=== PATIENT | female | born 1970 | race Native Hawaiian/Other Pacific Islander ===

== ENCOUNTER 2018-02-27 20:22 | Emergency (ER) | payer SELFPAY ==
[2018-02-27 20:22] VITALS: BMI 30.2
[2018-02-27 20:32] VITALS: RESP 18; TEMP 97.9
[2018-02-27 20:34] VITALS: PULSE 98; O2SAT 96
--- NOTE | 2018-02-27 20:55 | C.PDOC ---
History Of Present Illness 47 year old female with PMHx of psoriasis presents to the ED c/o generalized joint pain specially in her hands and feet for the past few days. Patient states she also has diffuse erythematous lesions over her body. Patient denies fever, chills, CP, SOB, nausea, vomit, weakness, numbness, injury, fall, trauma. Chief Complaint (Nursing): Abnormal Skin Integrity History Per: Patient History/Exam Limitations: no limitations Onset/Duration Of Symptoms: Days Current Symptoms Are (Timing): Still Present Quality Of Symptoms: Painful Recent travel outside of the [place]: No Additional History Per: Patient Past Medical History Reviewed: Historical Data, Nursing Documentation, Vital Signs Vital Signs: Last Vital Signs Temp 97.9 F 02/27/18 20:34 Pulse 98 H 02/27/18 20:34 Resp 18 02/27/18 20:34 BP 170/110 H 02/27/18 21:31 Pulse Ox 96 02/27/18 22:41 - Medical History PMH: Anemia, Asthma, HTN Other PMH: psoriasis Surgical History: Cholecystectomy - [facility] Procedures INTRAOPER CHOLANGIOGRAM (04/15/13) LAPAROSCOPIC CHOLECYSTECTOMY (04/15/13) Family History: States: Unknown Family Hx - Social History Hx Tobacco Use: Yes Hx Alcohol Use: No Hx Substance Use: No - Immunization History Hx Tetanus Toxoid Vaccination: No Hx Influenza Vaccination: No Hx Pneumococcal Vaccination: No Review Of Systems Constitutional: Negative for: Fever, Chills Cardiovascular: Negative for: Chest Pain Respiratory: Negative for: Shortness of Breath Gastrointestinal: Negative for: Nausea, Vomiting Musculoskeletal: Positive for: Hand Pain, Foot Pain Skin: Positive for: Lesions Neurological: Negative for: Weakness, Numbness Physical Exam - Physical Exam Appears: Non-toxic, No Acute Distress Skin: Normal Color, Warm, Dry, Other (erythematous diffuse lesions over body) Head: Atraumatic, Normacephalic Eye(s): bilateral: Normal Inspection Oral Mucosa: Moist Neck: Normal ROM, Supple Chest: Symmetrical Cardiovascular: Rhythm Regular Respiratory: Normal Breath Sounds, No Rales, No Rhonchi, No Wheezing Gastrointestinal/Abdominal: Soft, No Tenderness, No Guarding, No Rebound Extremity: Normal ROM, No Tenderness, Capillary Refill (< 2 seconds), No Swelling Pulses: Left Radial: Normal, Right Radial: Normal Neurological/Psych: Oriented x3, Normal Speech, Normal Motor, Normal Sensation Gait: Steady ED Course And Treatment - Laboratory Results Result Diagrams: 02/27/18 21:25 02/27/18 21:25 O2 Sat by Pulse Oximetry: 96 (ON RA) Pulse Ox Interpretation: Normal Medical Decision Making Medical Decision Making: Plan: * Uric acid Disposition - Disposition Referrals: Delmar Solomon MD [Primary Care Provider] - [facility] [Outside] Disposition: HOME/ ROUTINE Condition: STABLE Prescriptions: Naproxen [Naprosyn Tab] 375 mg PO TIDPC #20 tab Instructions: High Blood Pressure in Adults, Psoriatic Arthritis, Psoriasis (DC ) Forms: [employer] (Filipino) - POA Present On Arrival: None - Clinical Impression Clinical Impression: Hypertension, Psoriasis, Psoriatic arthritis - Scribe Statement The provider has reviewed the documentation as recorded by the Scribluh Pérez All medical record entries made by the Scribe were at my direction and personally dictated by me. I have reviewed the chart and agree that the record accurately reflects my personal performance of the history, physical exam, medical decision making, and the department course for this patient. I have also personally directed, reviewed, and agree with the discharge instructions and disposition.
[2018-02-27] MEDS ORDERED: Sodium Chloride 0.9% 1,000 ML IV ONE (21:05)
[2018-02-27 21:29] LABS: BASO # 0.1 K/uL (0.0-0.2); BASO % 1.1 % (0.0-2.0); EOS # 0.2 K/uL (0.0-0.7); EOS % 2.5 % (0.0-4.0); HEMOGLOBIN 14.4 g/dL (11.0-16.0); LYMPH # 2.3 K/uL (1.0-4.3); MEAN CELL VOLUME 85.9 fL (81.0-99.0); MEAN CORPUSCULAR HGB CONC 33.8 g/dL (33.0-37.0); MEAN PLATELET VOLUME 7.4 fL (7.2-11.7); MONO # 0.5 K/uL (0.0-0.8); MONO % 5.2 % (0.0-10.0); NEUT # 6.9 K/uL (1.8-7.0); NEUT % 68.2 % (50.0-75.0); NRBC % 0.1 % (0.0-2.0); RBC 4.95 Mil/uL (3.80-5.20)
[2018-02-27] MEDS ORDERED: Metoprolol Succinate 50 mg XL Tab PO STA (21:29)
[2018-02-27 21:31] VITALS: BP 170/110
[2018-02-27 21:43] LABS: ALB/GLOB RATIO 1.4 (1.0-2.1); ALBUMIN 4.4 g/dL (3.5-5.0); ALT/SGPT 144 U/L (9-52); AST/SGOT 77 U/L (14-36); BLOOD UREA NITROGEN 18 mg/dL (7-17); CALCIUM 9.3 mg/dl (8.6-10.4); GFR NON-AFRICAN AMERICAN > 60; URIC ACID 5.9 mg/dL (2.2-7.5)
[2018-02-27] MEDS ORDERED: Sodium Chloride 0.9% 1,000 ML ONE (22:16)
[2018-02-27] MEDS ORDERED: MethylPREDNISolone 40 mg Vial IVP STA (22:37)
[2018-02-27] MEDS ORDERED: MethylPREDNISolone 40 mg Vial ONE (22:53)
== END 2018-02-27 23:06 | disposition home or self-care (01) ==
LOC: SUPCPDRO 20:22 → C.ER 20:22
DX: L40.50 Arthropathic psoriasis, unspecified (principal); I10 Essential (primary) hypertension
CPT/HCPCS: 80053; 82550; 84550; 85025; 96374; 96375; 99283; J1885; J2920; J7030